=== PATIENT | male | born 1940 | race Two or more races ===

== ENCOUNTER 2024-06-24 10:50 | Emergency (ER) | payer OTHER ==
[~2024-06-24] VITALS: Ht 167.6 cm; Wt 77.4 kg
[2024-06-24 11:30] VITALS: BP 150/70; PULSE 68; RESP 18; TEMP 97.9; O2SAT 99
--- NOTE | 2024-06-24 11:57 | ED.PDOC ---
Musculoskeletal HPI Comments 83-year-old male patient presents to the ER for left ankle and left foot pain. Patient states that about 1 week ago he was walking when he tripped over something twisted his ankle and fell. Patient states the pain was worse 1 week ago. Patient is ambulatory. Patient states the pain has decreased. Patient denies any numbness or tingling to the no in his ankle or foot. Complains of muscular pain to the left side of the back. Chief Complaint: Lower Extremity Time Seen by MD: 11:16 Primary Care Provider: THOMAS Reviewed Notes: Nurses Notes, Medications Allergies: Coded Allergies: Codeine (Verified Allergy, Unknown, 06/24/24) Information Source: Patient Mode of Arrival: Ambulatory Past Medical History PAST MEDICAL HISTORY: COPD, DM, HTN Family History Family History: Reviewed,noncontributory to illness Constitutional: denies: chills, diaphoresis, fatigue, fever, malaise, sweats, weakness, others EENTM: denies: blurred vision, double vision, ear bleeding, ear discharge, ear drainage, ear pain, ear ringing, eye pain, eye redness, hearing loss, mouth pain, mouth swelling, nasal discharge, nose bleeding, nose congestion, nose pain, photophobia, tearing, throat pain, throat swelling, voice changes, others Respiratory: denies: cough, hemoptysis, orthopnea, SOB at rest, shortness of breath, SOB with excertion, stridor, wheezing, others Cardiovascular: denies: chest pain, dizzy spells, diaphoresis, Dyspnea on exertion, edema, irregular heart beat, left arm pain, lightheadedness, palpitations, PND, syncope, others Gastrointestinal: denies: abdomen distended, abdominal pain, blood streaked bowels, constipated, diarrhea, dysphagia, difficulty swallowing, hematemesis, melena, nausea, poor appetite, poor fluid intake, rectal bleeding, rectal pain, vomiting, others Genitourinary: denies: burning, dysuria, flank pain, frequency, hematuria, incontinence, penile discharge, penile sore, pain, testicle pain, testicle swelling, urgency, others Neurological: denies: dizziness, fainting, headache, left sided numbness, left sided weakness, numbness, paresthesia, pre-existing deficit, right sided numb ness, right sided weakness, seizure, speech problems, tingling, tremors, weakness, others Musculoskeletal: reports: back pain (left lateral), joint pain (ankle), joint swelling (ankle) Integumetry: denies: bruises, change in color, change in hair/nails, dryness, laceration, lesions, lumps, rash, wounds, others Allergic/Immunocompromised: denies: Difficulty Healing, Frequent Infections, Hives, Itching, others Hematologic/Lymphatic: denies: anemia, blood clots, easy bleeding, easy bruis ing, swollen glands, others Endocrine: denies: excessive hunger, excessive sweating, excessive thirst, exc essive urination, flushing, intolerance to cold, intolerance to heat, unexplained weight gain, unexplained weight loss, others All Other Systems: Reviewed and Negative Physical Exam General Appearance: No Apparent Distress, Normal HEENT: Normal ENT Inspection, Pharynx Normal, TMs Normal Neck: Full Range of Motion, Normal, Normal Inspection Respiratory: Chest Non-Tender, Lungs Clear, No Accessory Muscle Use, No Respiratory Distress, Normal Breath Sounds Cardiovascular: No Edema, No JVD, No Murmur, No Gallop, Normal Peripheral Pulses, Regular Rate/Rhythm Breast Exam: Deferred Gastrointestinal: No Organomegaly, Non Tender, No Pulsatile Mass, Normal Bowel Sounds, Soft Genitalia: Deferred Pelvic: Deferred Rectal: Deferred Extremities: No calf tenderness, Normal capillary refill, Normal inspection, Normal range of motion, Non-tender, No pedal edema Musculoskeletal : Location: Left Extremity Location: Ankle, Foot Apperance: Swelling, Tenderness: Mild Neurologic: Alert, motel front desk attendant II-XII nml as Tested, No Motor Deficits, Normal Affect, Normal Mood, No Sensory Deficits Cerebellar Function: Normal Reflexes: Normal Skin: Bruises (Patient has swelling and ecchymosis to the anterior portion of the left ankle and to the medial portion of the left foot), Dry, Warm Lymphatic: No Adenopathy Was a procedure done? Was a procedure done?: No Differential Diagnosis EXT Differential Diagnosis: Fracture, Sprain, Dislocation, Strain X-Ray, Labs, Meds, VS Vital Signs Date Time Temp Pulse Resp B/P (MAP) Pulse Ox O2 Delivery O2 Flow Rate FiO2 06/24/24 11:30 68 18 99 Room Air 06/24/24 11:30 97.9 68 18 150/70 (96) 99 97.9 06/24/24 11:00 97.3 63 16 154/62 (92 98 Current Medications Medications (Trade) Dose Ordered Sig/Orestes Route Start Time Stop Time Status Last Admin Ketorolac Tromethamine (Toradol Injection) 30 mg ONCE ONCE IM 06/24/24 12:00 06/24/24 12:19 DC 06/24/24 12:20 PATIENT: NILS ALY LACCT: [id number]: [id number] : 1940 LOC: ER ROOM / BED: / AGE / SEX: 83 / M ADM STATUS: REG ER SERVICE [id number] ORDERING PHYSICIAN: AMY MILIAN PHOTOVOLTAIC TECHNICIAN PROCEDURE(s): LFOOT - L FOOT 3 VIEW XRAY REASON: fall, bruising, pain ORDER NUMBER(s): [id number], ACCESSION NUMBER(s): [id number] CLINICAL INDICATION: fall, bruising, pain TECHNIQUE: XY L FOOT 3 VIEW XRAY Comparison: None FINDINGS/IMPRESSION: : There is no evidence of acute fracture or dislocation. Soft tissues are unremarkable. Plantar and posterior calcaneal spurring. ATED BY: LEVI CUMMINGS MD DICTATED DATE/TIME: 06/24/241211 SIGNED BY: LEVI CUMMINGS MD SIGNED DATE/TIME: 06/24/241211 PATIENT: NILS ALY ACCT: [id number] UNIT: [id number] : 1940 LOC: ER ROOM / BED: / AGE / SEX: 83 / M ADM STATUS: REG ER SERVICE [id number] ORDERING PHYSICIAN: AMY MILIAN PHOTOVOLTAIC TECHNICIAN PROCEDURE(s): LANKL - L ANKLE 3 VIEW REASON: fall, bruising, pain ORDER NUMBER(s): [id number], ACCESSION NUMBER(s): [id number] EXAM: XR Left Ankle Complete, 3 or More Views CLINICAL INDICATION: fall, bruising, pain TECHNIQUE: Frontal, lateral and oblique views of the left ankle. COMPARISON: None FINDINGS: BONES/JOINTS: See below. SOFT TISSUES: Soft tissue swelling without acute fracture. OTHER FINDINGS: . IMPRESSION: 1. Soft tissue swelling without acute fracture. 2. If symptoms persist, further evaluation with CT is recommended. ATED BY: COLIN BRADY MD DICTATED DATE/TIME: 06/24/241216 SIGNED BY: COLIN BRADY MD SIGNED DATE/TIME: 06/24/241216 CC: X-Ray, Labs, Meds, VS Comment On re-evaluation patient has symptomatic improvement. Patient is stable for discharge at this time. All test results and diagnostic imaging have been interpreted. All diagnostic findings, discharge care, and education instruction provided to the patient. Follow-up with PCP in 2-3 days Patient verbalized understanding, discharge instructions and agrees to treatment plan Vital signs are stable Patient is ambulatory Patient advised of which symptoms necessitate a return visit to the emergency room. Patient to return emergency room for any new worsening symptoms. Patient is aware that the purpose of this visit is for an acute medical emerge ncy requiring emergent stabilization. Chronic conditions, including malignancies have not been ruled out. Patient is instructed to follow up with PCP as directed for continued care and workup. If unable to arrange follow up, patient is to return to the emergency room for reassessment. Patient was given verbal and written discharge instructions and acknowledges understanding Time of 1ST Reevaluation: 12:12 Reevaluation 1ST: Improved Patient Education/Counseling: Diagnosis, Treatment, Prognosis Family Education/Counseling: Diagnosis, Treatment, Prognosis Departure 1 Departure Time of Disposition: 12:31 Impression: Primary Impression: Left ankle sprain Qualified Codes: S93.402A - Sprain of unspecified ligament of left ankle, initial encounter Disposition: HOME / SELF CARE / HOMELESS Condition: Stable e-Prescriptions Ibuprofen (Ibuprofen) 600 Mg Tab 1 TAB PO TID for 21 Days, #63 TAB 0 Refills Prov: KRISTALGonzaloAMY 06/24/24 Discharged With: Self, Relative Critical Care Note Critical Care Time?: No Stability Stability form required: No Heart Score Heart Score: Heart Score Response (Comments) Value History N/A 0 EKG N/A 0 Age N/A 0 Risk Factors N/A 0 Troponin N/A 0 Total 0 [email or web address] Jun 24, 2024 11:57
--- NOTE | 2024-06-24 12:15 | DVH ---
CLINICAL INDICATION: fall, bruising, pain TECHNIQUE: XY L FOOT 3 VIEW XRAY Comparison: None FINDINGS/IMPRESSION: : There is no evidence of acute fracture or dislocation. Soft tissues are unremarkable. Plantar and posterior calcaneal spurring.
--- NOTE | 2024-06-24 12:19 | DVH ---
EXAM: XR Left Ankle Complete, 3 or More Views CLINICAL INDICATION: fall, bruising, pain TECHNIQUE: Frontal, lateral and oblique views of the left ankle. COMPARISON: None FINDINGS: BONES/JOINTS: See below. SOFT TISSUES: Soft tissue swelling without acute fracture. OTHER FINDINGS: . IMPRESSION: 1. Soft tissue swelling without acute fracture. 2. If symptoms persist, further evaluation with CT is recommended.
[2024-06-24] MEDS: KETOROLAC TROMETH 60MG/2ML VIAL IM ONE (12:20)
[2024-06-24] MEDS ORDERED: IBUP-1454 PO (12:35)
== END 2024-06-24 12:43 | disposition home or self-care (01) ==
LOC: ER 10:50
DX: S93.402A Sprain of unspecified ligament of left ankle, initial encounter (principal); S90.32XA Contusion of left foot, initial encounter; I10 Essential (primary) hypertension; E11.9 Type 2 diabetes mellitus without complications; J44.9 Chronic obstructive pulmonary disease, unspecified; Z88.5 Allergy status to narcotic agent; W01.0XXA Fall on same level from slipping, tripping and stumbling without subsequent striking against object, initial encounter; Y93.01 Activity, walking, marching and hiking; Y92.89 Other specified places as the place of occurrence of the external cause; Y99.8 Other external cause status
CPT/HCPCS: 73610; 73630; 96372; 99284; J1885